=== PATIENT | male | born 1985 | race Hispanic/Latino ===

== ENCOUNTER 2017-10-13 07:25 | Emergency (ER) | payer BC, SELFPAY | END 2017-10-13 08:50 | disposition home or self-care (01) | LOC: ERS 07:25 | DX: J02.9 Acute pharyngitis, unspecified (principal); Z87.891 Personal history of nicotine dependence | CPT/HCPCS: 99283 ==

== ENCOUNTER 2019-11-24 20:49 | Emergency (ER) | payer BC, SELFPAY ==
--- NOTE | 2019-11-24 22:10 | RAD ---
Exam:Left forearm 2 views HISTORY: Pain x1 week. COMPARISON: None FINDINGS: No fracture, cortical irregularity or periosteal reaction. IMPRESSION: No fracture. No acute abnormality.
--- NOTE | 2019-11-24 22:10 | RAD ---
Exam:2 views right forearm HISTORY: Pain x1 week COMPARISON: None FINDINGS: No fracture, cortical irregularity or periosteal reaction IMPRESSION: No fracture or acute abnormality.
[2019-11-24 22:31] LABS: Anion Gap 16 mmol/L (10-20); BUN (Urea Nitrogen) 10 mg/dL (8.9-20.6); Calc. Creatinine Clearance 0 mL/min (70-130); Calcium 9.1 mg/dL (7.8-10.44); Carbon Dioxide 22 mmol/L (22-29); Chloride 104 mmol/L (98-107); Estimated GFR-MDRD Greater than 90; Glucose 97 mg/dL (70-105); Potassium 4.1 mmol/L (3.5-5.1); Sodium 138 mmol/L (136-145)
[2019-11-24] MEDS ORDERED: Ibuprofen 800 MG TAB ONE (22:54)
[2019-11-24] MEDS ORDERED: Acetaminophen 500 MG TAB ONE (22:54)
== END 2019-11-24 22:58 | disposition home or self-care (01) ==
LOC: ERS 20:49
DX: S49.82XA Other specified injuries of left shoulder and upper arm, initial encounter (principal); S49.81XA Other specified injuries of right shoulder and upper arm, initial encounter; X50.1XXA Overexertion from prolonged static or awkward postures, initial encounter
CPT/HCPCS: 36415; 80048

== ENCOUNTER 2020-01-10 12:02 | Emergency (ER) | payer BC | END 2020-01-10 13:00 | disposition home or self-care (01) | LOC: ERS 12:02 | DX: M70.832 Other soft tissue disorders related to use, overuse and pressure, left forearm (principal); M70.831 Other soft tissue disorders related to use, overuse and pressure, right forearm; Z87.891 Personal history of nicotine dependence | CPT/HCPCS: 99281 ==

== ENCOUNTER 2021-12-06 19:02 | Emergency (ER) | payer BC, SELFPAY ==
[2021-12-06] MEDS ORDERED: Ibuprofen 800 MG TAB ONE (20:14)
== END 2021-12-06 20:23 | disposition home or self-care (01) ==
LOC: ERS 19:02
DX: M79.601 Pain in right arm (principal); Z87.891 Personal history of nicotine dependence

== ENCOUNTER 2022-01-13 01:55 | Emergency (ER) | payer SELFPAY | END 2022-01-13 02:23 | disposition home or self-care (01) | LOC: ERS 01:55 | DX: H60.92 Unspecified otitis externa, left ear (principal); H66.92 Otitis media, unspecified, left ear; Z87.891 Personal history of nicotine dependence | CPT/HCPCS: 99282 ==

== ENCOUNTER 2022-10-12 06:53 | Emergency (ER) | payer BC, SELFPAY ==
[2022-10-12] MEDS ORDERED: Ondansetron ODT 8 MG TAB ONE (07:33)
== END 2022-10-12 07:50 | disposition home or self-care (01) ==
LOC: ERS 06:53
DX: R11.2 Nausea with vomiting, unspecified (principal); F17.210 Nicotine dependence, cigarettes, uncomplicated
CPT/HCPCS: 99283; Q0162

== ENCOUNTER 2024-06-11 06:45 | Day surgery (SDC) | payer BC ==
[2024-06-10 09:34] VITALS: BMI 38.1
[2024-06-11] MEDS ORDERED: fentaNYL 50 mcg/mL 1 mL Vial ONE ×4 (09:01→13:19)
[2024-06-11] MEDS ORDERED: Bupivacaine PF 0.5% 30 ML VIAL ONE ×2 (09:01→11:56)
[2024-06-11] MEDS ORDERED: Midazolam HCl 2 mg/2 ml Vial ONE ×2 (09:01→11:10)
[2024-06-11] MEDS ORDERED: PROPOFOL 20 ML ONE (09:45)
[2024-06-11] MEDS ORDERED: fentaNYL PF 100 MCG/2 ML SYRINGE ONE (09:45)
[2024-06-11] MEDS ORDERED: CEFAZOLIN 2 GM VIAL ONE (10:59)
[2024-06-11] MEDS ORDERED: MINERAL OIL/WHITE PETROLATUM 3.5 GM TUBE ONE (10:59)
[2024-06-11] MEDS ORDERED: Ondansetron PF 4 MG/2 ML Vial ONE (11:27)
[2024-06-11] MEDS ORDERED: Dexamethasone 20 MG/5 ML VIAL ONE (11:27)
[2024-06-11] MEDS ORDERED: EPINEPHrine 1 MG/ML VIAL ONE (11:56)
[2024-06-11] MEDS ORDERED: HYDROcodone/Acetaminophen 5/325 mg Tablet ONE (14:45)
== END 2024-06-11 15:10 | disposition home or self-care (01) ==
LOC: SDC 06:45
PROVIDERS: ATTEND Student in an Organized Health Care Education/Training Program
PROC: 3E0T3BZ Introduction of Anesthetic Agent into Peripheral Nerves and Plexi, Percutaneous Approach (ICD-10-PCS; principal; 2024-06-11)
PROC: 0SBC4ZZ Excision of Right Knee Joint, Percutaneous Endoscopic Approach (ICD-10-PCS; principal; 2024-06-11)
DX: M65.161 Other infective (teno)synovitis, right knee (principal); M23.211 Derangement of anterior horn of medial meniscus due to old tear or injury, right knee; K21.9 Gastro-esophageal reflux disease without esophagitis; G62.9 Polyneuropathy, unspecified; F17.200 Nicotine dependence, unspecified, uncomplicated; Z90.49 Acquired absence of other specified parts of digestive tract; Z79.1 Long term (current) use of non-steroidal anti-inflammatories (NSAID); Z79.899 Other long term (current) drug therapy
CPT/HCPCS: J0171; J0665; J1100; J2250; J2405; J2704; J3010